=== PATIENT | female | born 1955 | race Caucasian/White ===

== ENCOUNTER 2016-12-29 05:00 | Emergency (ER) | payer MEDICARE, MEDICAID ==
[~2016-12-29] VITALS: Ht 165.1 cm; Wt 69.9 kg
[2016-12-29 05:00] VITALS: BP 166/98; PULSE 100; RESP 18; TEMP 97.8; O2SAT 100
--- NOTE | 2016-12-29 05:00 | NUR ---
Patient to ER bed 4 to gown for evaluation. Side rails up. Report given to Ron ADRIAN.
--- NOTE | 2016-12-29 05:08 | NUR ---
Pt BIB BLS with chief complain of fever, coughing, and bilateral throbbing eyes pain 8/10. Both eyes appeared reddened, watery, pt stated that she had green crusty pus from both eyes. A&Ox4, denies SOB or chestpain, denies N/V/D, skin intact, ambulatory. Denies change in vision. Will continue to monitor
--- NOTE | 2016-12-29 05:30 | NUR ---
ER at bedside examining patient.
--- NOTE | 2016-12-29 06:03 | NUR ---
Patient given written and verbal discharge instructions and verbalizes understanding. ER MD discussed with patient the results and treatment provided. Given copies of tests performed in ER. Patient in stable condition. ID arm band removed. Rx of prednisone sudaphed,motrin given. Patient educated on pain management and to follow up with PMD. Pain Scale 0/10. Opportunity for questions provided and answered.
== END 2016-12-29 06:02 | disposition home or self-care (01) ==
LOC: SED 05:00
DX: H10.9 Unspecified conjunctivitis (principal); J06.9 Acute upper respiratory infection, unspecified; I10 Essential (primary) hypertension; Z85.3 Personal history of malignant neoplasm of breast
CPT/HCPCS: 99283